=== PATIENT | female | born 1950 | race Caucasian/White ===

== ENCOUNTER 2017-06-17 09:52 | Outpatient (CLI) | payer MEDICARE ==
[2017-06-17 10:51] LABS: Hemoglobin 13.6 g/dL (12.0-16.0); Mean Corpuscular HGB CONC 33.5 g/dL (32.0-36.0); Mean Corpuscular Hemoglobin 29.9 pg (27.0-31.0); Mean Corpuscular Volume 89.1 fl (81.0-99.0); Mean Platelet Volume 7.7 fL (7.4-10.4); Platelet Count 254 thou/uL (130-400); RBC Distribution Width 12.6 % (11.5-14.5); Red Blood Cell (RBC) Count 4.55 mill/uL (4.20-5.40); White Blood Cell (WBC) Count 10.2 thou/uL (4.8-10.8)
[2017-06-17 10:56] LABS: INR-International Normal Ratio 1.1; Prothrombin Time 14.2 SEC (12.0-14.7)
[2017-06-17 11:19] LABS: ALT (SGPT) 19 U/L (8-55); AST (SGOT) 14 U/L (5-34); Albumin 4.2 g/dL (3.4-4.8); Alkaline Phosphatase 110 U/L (40-150); Anion Gap 10 mmol/L (10-20); BUN (Urea Nitrogen) 14 mg/dL (9.8-20.1); Bilirubin, Total 1.7 mg/dL (0.2-1.2); Calc. Creatinine Clearance 0 mL/min (70-130); Calcium 9.7 mg/dL (7.8-10.44); Carbon Dioxide 27 mmol/L (23-31); Cardiac Risk 3.3 (Less than 4.5); Chloride 105 mmol/L (98-107); Cholesterol 136 mg/dl (< 200 Desired); Estimated GFR-MDRD 64; Globulin 3.2 g/dL (2.4-3.5); Glucose 122 mg/dL (80-115); HDL Cholesterol 41 mg/dL (>60 Neg Risk); LDL Cholesterol, Calculated 76 mg/dL; Potassium 4.2 mmol/L (3.5-5.1); Protein, Total 7.4 g/dL (6.0-8.3); Sodium 138 mmol/L (136-145); Triglycerides 93 mg/dL (Less than 150)
--- NOTE | 2017-06-17 12:02 | RAD ---
CHEST 2 VIEWS: HISTORY: Chest pain. Preop. FINDINGS: No comparison. Cardiac silhouette and pulmonary vasculature are unremarkable. Mediastinum is midlin e. There is calcification of the aortic arch. Hemispherical small density projecting inferiorly to the anterior 1st costomanubrial junction is favored to represent calcification that may be a calcifie d granuloma or calcified cartilage of the chest wall. It is not well seen on the lateral view. No l obar consolidation, pneumothorax, or pleural fluid. IMPRESSION: No active cardiopulmonary abnormalities are demonstrated. POS: NORAH
== END 2017-06-17 09:53 | disposition home or self-care (01) ==
LOC: LABBT 09:52
PROVIDERS: ATTEND Internal Medicine Cardiovascular Disease
DX: Z01.818 Encounter for other preprocedural examination (principal); R94.39 Abnormal result of other cardiovascular function study
CPT/HCPCS: 71046; 80053; 80061; 85027; 85610; 85730; 93005; 93010

== ENCOUNTER 2017-06-23 09:59 | Day surgery (SDC) | payer MEDICARE ==
[2017-06-17 10:14] VITALS: BMI 34.4
[2017-06-23] MEDS ORDERED: Lidocaine 1% (PF) 30 ML VIAL ONE (11:42)
[2017-06-23] MEDS ORDERED: Nitroglycerin 100MG/250ML BOT 250 ML ONE (12:10)
[2017-06-23] MEDS ORDERED: Heparin 10,000 UNITS/1 ML VIAL ONE (12:10)
[2017-06-23] MEDS ORDERED: Verapamil 5 MG/2 ML VIAL ONE (12:10)
[2017-06-23] MEDS ORDERED: Iopamidol 370 76% 100 ML VIAL ONE (15:32)
== END 2017-06-23 15:04 | disposition home or self-care (01) ==
LOC: CCL 09:59
PROVIDERS: ATTEND Internal Medicine Cardiovascular Disease
PROC: 4A023N7 Measurement of Cardiac Sampling and Pressure, Left Heart, Percutaneous Approach (ICD-10-PCS; principal; 2017-06-23)
PROC: B2151ZZ Fluoroscopy of Left Heart using Low Osmolar Contrast (ICD-10-PCS; 2017-06-23)
DX: I25.10 Atherosclerotic heart disease of native coronary artery without angina pectoris (principal); I10 Essential (primary) hypertension; E78.5 Hyperlipidemia, unspecified; E11.9 Type 2 diabetes mellitus without complications; K50.90 Crohn's disease, unspecified, without complications; G47.30 Sleep apnea, unspecified; Z79.84 Long term (current) use of oral hypoglycemic drugs; Z79.82 Long term (current) use of aspirin; Z79.890 Hormone replacement therapy; Z79.899 Other long term (current) drug therapy
CPT/HCPCS: 93458; C1769; J1644; J2001

== ENCOUNTER 2020-01-18 15:38 | Outpatient (CLI) | payer MEDICARE ==
--- NOTE | 2020-01-18 16:20 | RAD ---
LEFT HUMERUS TWO VIEWS: 01/18/20 HISTORY: Left arm pain. FINDINGS/IMPRESSION: The left humerus is intact. POS: MZA
--- NOTE | 2020-01-18 16:21 | RAD ---
LEFT SHOULDER TWO VIEWS: 01/18/20 HISTORY: Left shoulder pain. FINDINGS/IMPRESSION: There are degenerative changes in the acromioclavicular joint. No fracture, dislocation, or bony dest ruction is seen. POS: AMRYA
--- NOTE | 2020-01-18 16:57 | RAD ---
CERVICAL SPINE AP AND LATERAL STANDARD THREE VIEW: 01/18/20 HISTORY: Pain. COMPARISON: None. FINDINGS: Advanced degenerative disc space narrowing at C5-6 and C6-7 with bridging anterior osteophytes. There is minimal 1 to 2 mm C3-4 anterolisthesis, degenerative in nature. There is ossification of the nuchal ligament. The visualized ribs are intact. Moderate thoracic calci fications. IMPRESSION: Moderate-high grade spondylosis lower cervical spine. MRI or CT myelogram may be beneficial if clinic ally warranted. POS: OFF
== END 2020-01-18 15:39 | disposition home or self-care (01) ==
LOC: BICRAD 15:38
PROVIDERS: ATTEND Internal Medicine
DX: M25.512 Pain in left shoulder (principal); M54.2 Cervicalgia; M79.622 Pain in left upper arm; M47.812 Spondylosis without myelopathy or radiculopathy, cervical region
CPT/HCPCS: 72040

== ENCOUNTER 2020-02-23 06:46 | Outpatient (CLI) | payer MEDICARE ==
[2020-02-23 19:02] LABS: SARS-CoV-2 MS2 Positive; SARS-CoV-2 N Gene Negative; SARS-CoV-2 S Gene Negative; SARS-CoV-2 by NAA Not Detected (NotDetected); SARS-CoV-2 orf1ab Negative
== END 2020-02-23 06:47 | disposition home or self-care (01) ==
LOC: LABBT 06:46
PROVIDERS: ATTEND Internal Medicine Cardiovascular Disease
DX: Z01.812 Encounter for preprocedural laboratory examination (principal); Z20.828 Contact with and (suspected) exposure to other viral communicable diseases
CPT/HCPCS: 87635; U0003

== ENCOUNTER 2020-02-28 10:02 | Day surgery (SDC) | payer MEDICARE ==
[2020-02-25 10:59] VITALS: BMI 35.6
[2020-02-28] MEDS ORDERED: Lidocaine 1% PF 5 ML VIAL ONE (10:49)
[2020-02-28] MEDS ORDERED: PROPOFOL 200 MG/20 ML VIAL ONE (10:49)
--- NOTE | 2020-02-28 12:53 | OP ---
DATE OF PROCEDURE: 02/28/2020 PREPROCEDURE DIAGNOSIS: Atrial fibrillation. POSTOPERATIVE DIAGNOSIS: Sinus rhythm. PROCEDURE PERFORMED: Synchronized cardioversion at 150 joules. The patient was brought as an outpatient. She was consented for the procedure. Conscious sedation was performed with propofol. Successful cardioversion performed at 150 joules. IMPRESSION: Successful synchronized cardioversion. Job ID: [id number]
== END 2020-02-28 13:50 | disposition home or self-care (01) ==
LOC: SDC 10:02
PROVIDERS: ATTEND Internal Medicine Cardiovascular Disease
PROC: 5A2204Z Restoration of Cardiac Rhythm, Single (ICD-10-PCS; principal; 2020-02-28)
DX: I48.19 Other persistent atrial fibrillation (principal); I48.92 Unspecified atrial flutter; I25.10 Atherosclerotic heart disease of native coronary artery without angina pectoris; I10 Essential (primary) hypertension; E78.5 Hyperlipidemia, unspecified; G47.33 Obstructive sleep apnea (adult) (pediatric); E11.9 Type 2 diabetes mellitus without complications; K50.90 Crohn's disease, unspecified, without complications; Z79.01 Long term (current) use of anticoagulants; Z79.82 Long term (current) use of aspirin; Z79.84 Long term (current) use of oral hypoglycemic drugs; Z79.899 Other long term (current) drug therapy
CPT/HCPCS: 92960; 93005; 93010; J2704

== ENCOUNTER 2020-05-26 15:02 | Observation (INO) | payer MEDICARE ==
[2020-05-26 16:02] LABS: #Basophils 0.1 thou/uL (0.0-0.2); #Eosinphils 0.4 thou/uL (0.0-0.7); #Lymphocytes 1.7 thou/uL (1.20-3.40); #Monocytes 0.7 thou/uL (0.11-0.59); #Neutrophils 6.7 thou/uL (1.40-6.50); %Basophils 0.5 % (0.0-1.0); %Eosinophils 4.6 % (0.0-10.0); %Lymphocytes 17.4 % (21.0-51.0); %Monocytes 6.8 % (0.0-10.0); %Neutrophils 70.7 % (42.0-75.0); Hemoglobin 13.7 g/dL (12.0-16.0); Mean Corpuscular HGB CONC 33.9 g/dL (32.0-36.0); Mean Corpuscular Hemoglobin 31.1 pg (27.0-31.0); Mean Corpuscular Volume 91.9 fL (78.0-98.0); Mean Platelet Volume 8.5 fL (7.4-10.4); Platelet Count 211 thou/uL (130-400); RBC Distribution Width 13.2 % (11.5-14.5); Red Blood Cell (RBC) Count 4.39 mill/uL (4.20-5.40); White Blood Cell (WBC) Count 9.5 thou/uL (4.8-10.8)
--- NOTE | 2020-05-26 16:17 | RAD ---
PORTABLE CHEST: 05/26/20 HISTORY: Heart palpitations. COMPARISON: 06/17/17 study. Heart size is borderline for portable technique. Mediastinal structures are unremarkable. The aorta i s mildly tortuous. The lungs are clear of infiltrates. There are no signs of failure. IMPRESSION: No active intrathoracic disease. POS: JOSE A
[2020-05-26] MEDS ORDERED: Nitroglycerin 2% Ointment 1 INCH/1 GM Packet ONE (16:20)
[2020-05-26 16:25] LABS: ALT (SGPT) 16 U/L (8-55); AST (SGOT) 15 U/L (5-34); Albumin 4.2 g/dL (3.4-4.8); Alkaline Phosphatase 127 U/L (40-110); Anion Gap 10 mmol/L (10-20); BUN (Urea Nitrogen) 19 mg/dL (9.8-20.1); Bilirubin, Total 1.7 mg/dL (0.2-1.2); Calc. Creatinine Clearance 0 mL/min (70-130); Calcium 9.2 mg/dL (7.8-10.44); Carbon Dioxide 28 mmol/L (23-31); Chloride 106 mmol/L (98-107); Globulin 3.7 g/dL (2.4-3.5); Glucose 106 mg/dL (80-115); Protein, Total 7.9 g/dL (5.8-8.1); Sodium 140 mmol/L (136-145)
--- NOTE | 2020-05-26 19:01 | PDOC.HHP ---
Hospitalist HPI chest pain, heart palpitations History of Present Illness: PCP: Dr. Mckeon Patient is a 69-year-old female with a past medical history significant for atrial fibrillation (on Eliquis), HTN, HLD, DM 2 and AARON that presents to the emergency department for the above complaint. The patient reports acute onset of substernal chest pain at approximately 1230 while sitting at home. She describes the pain as chest tightness and heaviness, exacerbated by nothing and relieved with Nitropaste. She reports associated heart palpitations and shortness of breath. She has a history of atrial fibrillation and this was her first thought. She used a phone application to check her heart rhythm, which told her possible atrial fibrillation. This made the patient feel anxious, which seemed to worsen her symptoms. She reports that the entire episode lasted approximately 5 minutes. She denies any lightheadedness or swelling to her lower extremities. She denies any new cough, hemoptysis, wheezing. No history of COPD/asthma. No history of DVT/PE. She denies any recent fever or illness. No known sick contacts. She denies any abdominal pain, nausea, vomiting, diarrhea. She denies any dysuria or hematuria. She received the first dose of the Covid vaccination 3 weeks ago. ED Course: VITAL SIGNS FriMay 26, 2020 15:03 KASSANDRA Lopez [place] BP: 143/83, Pulse: 89, Resp: 20, Temp: 98.3 (Oral), O2 sat: 97 on (Room Air), Time: 05/26/2020 15:03. VITAL SIGNS FriMay 26, 2020 16:00 KASSANDRA Ogden [place] BP: 112/70, Pulse: 75, Resp: 18, O2 sat: 99 on (Room Air), Time: 05/26/2020 16:00. VITAL SIGNS FriMay 26, 2020 17:00 KASSANDRA Ogden [place] BP: 122/67, Pulse: 64, Resp: 19, O2 sat: 97 on (Room Air), Time: 05/26/2020 17:00. VITAL SIGNS FriMay 26, 2020 18:00 KASSANDRA Ogden [place] BP: 128/71, Pulse: 72, Resp: 72, Pain: 0, O2 sat: 97 on (Room Air), Time: 05/26/2020 18:00. Presented stable vital signs. EKG atrial fibrillation rate controlled. Troponin negative. CXR no acute process. T bili 1.7, ALP 127, abdominal ultrasound showed gallstones and right renal cyst. Medications: Nitro-Bid transdermal 1 inch Topical Given 16:22 05/26/2020 Allergies/Adverse Reactions: Allergy/AdvReac Type Severity Reaction Status Date / Time No Known Allergies Allergy Unverified 02/25/20 11:00 Home Medications: Medication Instructions Recorded Confirmed Type Amlodipine [Norvasc] 5 mg PO DAILY 06/17/17 02/28/20 History Aspirin [Aspir-Low] 81 mg PO DAILY 06/17/17 02/28/20 History Rosuvastatin [Crestor] 5 mg PO DAILY 06/17/17 02/28/20 History metFORMIN [Glucophage] 500 mg PO QAM-WM 06/17/17 02/28/20 History Apixaban [Eliquis] 1 tab PO BID 02/25/20 02/28/20 History Dronedarone HCl [Multaq] 1 tab PO BID 02/25/20 02/28/20 History Metoprolol Succinate 25 mg PO DAILY 02/25/20 02/28/20 History Telmisartan 80 mg PO DAILY 02/25/20 02/28/20 History Past History: PMHx: Atrial fibrillation (on Eliquis), DM 2, HTN, HLD, AARON (CPAP) PSHx: None FHx: Noncontributory to this case Social: Lives at home with her family. Drinks alcohol socially. Never smoked or use illicit drugs. Independent. Hospitalist HPI ROS All other systems reviewed; all pertinent +/- noted in HPI/Subj Hospitalist Exam General Appearance: NAD, awake alert. negative: ill appearing Eye: anicteric sclera ENT: normocephalic atraumatic, moist mucosa Neck: supple, no carotid bruit Heart: no murmur, no gallops, no rubs, normal peripheral pulses, irregular Respiratory: CTAB, no wheezes, no rales, no ronchi, no tachypnea Gastrointestinal: soft, non-tender, non-distended, normal bowel sounds, no rigidity Gastrointestinal - other findings: Negative Gutierrez sign, negative Rovsing sign, no rebound tenderness Extremities: no cyanosis, no edema Skin: no rashes Neurological: no focal deficits Musculoskeletal: normal tone, normal strength Psychiatric: normal affect, A&O x 3 Hospitalist Results Result Diagrams: 05/26/20 15:39 05/26/20 15:39 Lab results: Laboratory Last Values WBC 9.5 thou/uL (4.8-10.8) 05/26/20 15:39 RBC 4.39 mill/uL (4.20-5.40) 05/26/20 15:39 Hgb 13.7 g/dL (12.0-16.0) 05/26/20 15:39 Hct 40.3 % (36.0-47.0) 05/26/20 15:39 MCV 91.9 fL (78.0-98.0) 05/26/20 15:39 MCH 31.1 pg (27.0-31.0) H 05/26/20 15:39 MCHC 33.9 g/dL (32.0-36.0) 05/26/20 15:39 RDW 13.2 % (11.5-14.5) 05/26/20 15:39 Plt Count 211 thou/uL (130-400) 05/26/20 15:39 MPV 8.5 fL (7.4-10.4) 05/26/20 15:39 Neutrophils % 70.7 % (42.0-75.0) 05/26/20 15:39 Lymphocytes % 17.4 % (21.0-51.0) L 05/26/20 15:39 Monocytes % 6.8 % (0.0-10.0) 05/26/20 15:39 Eosinophils % 4.6 % (0.0-10.0) 05/26/20 15:39 Basophils % 0.5 % (0.0-1.0) 05/26/20 15:39 Neutrophils # 6.7 thou/uL (1.40-6.50) H 05/26/20 15:39 Lymphocytes # 1.7 thou/uL (1.20-3.40) 05/26/20 15:39 Monocytes # 0.7 thou/uL (0.11-0.59) H 05/26/20 15:39 Eosinophils # 0.4 thou/uL (0.0-0.7) 05/26/20 15:39 Basophils # 0.1 thou/uL (0.0-0.2) 05/26/20 15:39 Sodium 140 mmol/L (136-145) 05/26/20 15:39 Potassium 4.0 mmol/L (3.5-5.1) 05/26/20 15:39 Chloride 106 mmol/L (98-107) 05/26/20 15:39 Carbon Dioxide 28 mmol/L (23-31) 05/26/20 15:39 Anion Gap 10 mmol/L (10-20) 05/26/20 15:39 BUN 19 mg/dL (9.8-20.1) 05/26/20 15:39 Creatinine 1.03 mg/dL (0.6-1.1) 05/26/20 15:39 Estimated GFR (MDRD) 53 05/26/20 15:39 Glucose 106 mg/dL (80-115) 05/26/20 15:39 Calcium 9.2 mg/dL (7.8-10.44) 05/26/20 15:39 Total Bilirubin 1.7 mg/dL (0.2-1.2) H 05/26/20 15:39 AST 15 U/L (5-34) 05/26/20 15:39 ALT 16 U/L (8-55) 05/26/20 15:39 Alkaline Phosphatase 127 U/L (40-110) H 05/26/20 15:39 Troponin I Less than 0.010 ng/mL (< 0.028) 05/26/20 15:39 Serum Total Protein 7.9 g/dL (5.8-8.1) 05/26/20 15:39 Albumin 4.2 g/dL (3.4-4.8) 05/26/20 15:39 Globulin 3.7 g/dL (2.4-3.5) H 05/26/20 15:39 Albumin/Globulin Ratio 1.1 g/dL (1.2-2.2) L 05/26/20 15:39 EKG Status: image reviewed by me, report reviewed by me Additional Comments: 12 lead EKG interpreted by Emergency Department Physician at time of study, 12 lead EKG shows, atrial fibrillation with controlled ventricular response, Rate (beats per minute): 73, with no ectopics, ST segments normal, T waves normal, [place] normal, Clinical impression:, dysrhythmia - atrial. Chest x-ray Status: image reviewed by me, report reviewed by me Additional Comments: IMPRESSION: No active intrathoracic disease. US - abdomen Status: pending Additional Comments: 1. Multiple cholelithiasis with normal caliber common bile duct. 2. 9 cm right renal cyst. Hospitalist H&P A/P (1) Chest pain Code(s): R07.9 - CHEST PAIN, UNSPECIFIED Status: Acute (2) Atrial fibrillation with controlled ventricular rate Code(s): I48.91 - UNSPECIFIED ATRIAL FIBRILLATION Status: Acute (3) Cholelithiasis Code(s): K80.20 - CALCULUS OF GALLBLADDER W/O CHOLECYSTITIS W/O OBSTRUCTION Status: Acute (4) Renal cyst, right Code(s): N28.1 - CYST OF KIDNEY, ACQUIRED Status: Acute (5) Hypertension Code(s): I10 - ESSENTIAL (PRIMARY) HYPERTENSION Status: Chronic (6) Hyperlipidemia Code(s): E78.5 - HYPERLIPIDEMIA, UNSPECIFIED Status: Chronic (7) DM2 (diabetes mellitus, type 2) Status: Chronic (8) Obstructive sleep apnea Code(s): G47.33 - OBSTRUCTIVE SLEEP APNEA (ADULT) (PEDIATRIC) Status: Chronic Plan: Patient with chronic A. fib, HTN, HLD, DM 2 and AARON presents to the hospital for angina and heart palpitations relieved with Nitropaste. EKG A. fib rate controlled. Initial troponin negative. CXR no acute process. #Chest pain Heart score 6. (2018) right heart cath 30% to mid LAD Recent echocardiogram by Dr. Crouch. Trend troponins, check BNP, TSH, mag level, UA. Continue Nitropaste and aspirin. Hold home dose Eliquis for now. N.p.o. at midnight. Consult cardiology. Restart home dose Toprol-XL, Multaq, Norvasc, telmisartan. #Atrial fibrillation with controlled ventricular rate Chronic. Takes Toprol XL, Multaq, Eliquis, aspirin. Hold Eliquis. Restart other home medications. #Cholelithiasis Presented T bili 1.7, ALP 127 Abdominal ultrasound multiple gallstones with normal ducts. Check hepatic panel in a.m. #Right renal cyst Incidental finding on right upper quadrant ultrasound. Family history renal cell carcinoma. Follow-up outpatient. #Hypertension Presented normotensive. Restart home dose telmisartan, Toprol, Norvasc #Hyperlipidemia Check FLP. Restart home dose Crestor. #DM2 Hold metformin for now. Start mild ISS. Accu-Cheks AC at bedtime. #Obstructive sleep apnea Compliant on home CPAP. RT to manage CPAP at night. SCDs for DVT prophylaxis. Pepcid for GI prophylaxis. CODE STATUS full code. Discussed the case with attending physician, Dr. Wen, who agrees with plan of care.
--- NOTE | 2020-05-26 19:48 | ULT ---
RIGHT UPPER QUADRANT ULTRASOUND: 05/26/20 HISTORY: Right upper quadrant pain. Real time imaging of the right upper quadrant shows multiple gallstones. Gallbladder wall does not ap pear thickened. The common duct is 4 mm. The visualized liver parenchyma shows no focal findings. It measures 16 cm in length. Right kidney shows a large 9 cm cyst. It appears to have some internal septations which appears thinn ed. Full characterization with a nonemergent CT may be helpful. Pancreas region is partially obscured . IMPRESSION: 1. Multiple cholelithiasis with a normal caliber common duct. 2. Large right renal cyst. POS: JOSE A
[2020-05-26 20:15] LABS: Troponin I 0.024 ng/mL (< 0.028)
[2020-05-26] MEDS ORDERED: Nitroglycerin 0.4 MG TAB (25 Tab Bottle) SL PRN (21:27)
[2020-05-26] MEDS ORDERED: HumaLOG 300 UNITS/3 ML VIAL SC PRN ×2 (21:32)
[2020-05-26] MEDS ORDERED: Dextrose 50% Abboject 50 ML SYRINGE SLOW IVP PRN (21:32)
[2020-05-26] MEDS ORDERED: Dextrose 5% in Water 1,000 ML IV PRN (21:32)
[2020-05-26] MEDS ORDERED: Ondansetron ODT 4 MG TAB PO PRN (21:33)
[2020-05-26] MEDS ORDERED: Acetaminophen 325 MG TAB PO PRN (21:33)
[2020-05-26] MEDS: Nitroglycerin 2% Ointment 1 INCH/1 GM Packet TOP SCH (23:37)
[2020-05-27 04:33] VITALS: BMI 35.8
[2020-05-27] MEDS: Nitroglycerin 2% Ointment 1 INCH/1 GM Packet TOP SCH (06:36)
[2020-05-27 07:54] LABS: #Basophils 0.1 thou/uL (0.0-0.2); #Eosinphils 0.5 thou/uL (0.0-0.7); #Lymphocytes 1.7 thou/uL (1.20-3.40); #Monocytes 0.6 thou/uL (0.11-0.59); #Neutrophils 6.8 thou/uL (1.40-6.50); %Basophils 0.7 % (0.0-1.0); %Eosinophils 4.7 % (0.0-10.0); %Monocytes 5.9 % (0.0-10.0); %Neutrophils 70.7 % (42.0-75.0); Hemoglobin 13.2 g/dL (12.0-16.0); Mean Corpuscular HGB CONC 33.7 g/dL (32.0-36.0); Mean Corpuscular Hemoglobin 30.9 pg (27.0-31.0); Mean Corpuscular Volume 91.7 fL (78.0-98.0); Mean Platelet Volume 8.8 fL (7.4-10.4); Platelet Count 230 thou/uL (130-400); RBC Distribution Width 13.2 % (11.5-14.5); Red Blood Cell (RBC) Count 4.28 mill/uL (4.20-5.40); White Blood Cell (WBC) Count 9.6 thou/uL (4.8-10.8)
[2020-05-27 08:10] LABS: Anion Gap 13 mmol/L (10-20); BUN (Urea Nitrogen) 20 mg/dL (9.8-20.1); Calc. Creatinine Clearance 68 mL/min (70-130); Calcium 9.2 mg/dL (7.8-10.44); Carbon Dioxide 28 mmol/L (23-31); Cardiac Risk 3.2 (Less than 4.5); Chloride 107 mmol/L (98-107); Cholesterol 136 mg/dl (< 200 Desired); Glucose 125 mg/dL (80-115); HDL Cholesterol 42 mg/dL (>60 Neg Risk); LDL Cholesterol, Calculated 78 mg/dL; Potassium 4.5 mmol/L (3.5-5.1); Sodium 143 mmol/L (136-145); Triglycerides 82 mg/dL (Less than 150)
[2020-05-27 08:12] LABS: ALT (SGPT) 13 U/L (8-55); AST (SGOT) 13 U/L (5-34); Albumin 3.8 g/dL (3.4-4.8); Alkaline Phosphatase 113 U/L (40-110); Bilirubin, Direct 0.7 mg/dL (0.1-0.3); Bilirubin, Total 1.5 mg/dL (0.2-1.2); Protein, Total 7.1 g/dL (5.8-8.1)
[2020-05-27] MEDS ORDERED: Losartan 25 MG TAB PO SCH (09:00)
[2020-05-27] MEDS ORDERED: Amlodipine 5 MG TAB PO SCH (09:00)
[2020-05-27] MEDS ORDERED: Famotidine 20 MG TAB PO SCH (09:00)
[2020-05-27] MEDS ORDERED: Aspirin 81 mg Enteric Coated Tablet PO SCH (09:00)
[2020-05-27] MEDS ORDERED: Dronedarone HCl 400 MG TAB PO SCH (09:00)
[2020-05-27] MEDS ORDERED: Rosuvastatin 5 MG TAB PO SCH (09:00)
[2020-05-27 11:50] VITALS: BP 120/59; TEMP 98.2
--- NOTE | 2020-05-27 11:54 | CON ---
DATE OF CONSULTATION: REASON FOR CONSULTATION: Chest tightness and atrial fibrillation. HISTORY OF PRESENT ILLNESS: Ms Abreu is a 69-year-old woman, who I have seen and evaluated in the past. She has a previous history of mild coronary artery disease. She also had a recent stress study performed in 2019 with no significant coronary artery disease. She recently presented with chest tightness. This corresponded with her going back into atrial fibrillation. This lasted for several hours. Once she converted, she had no current symptoms. She states she became anxious and stressed over going back in atrial fibrillation and decided to come to the in the emergency room based on the weather. PAST MEDICAL HISTORY: Paroxysmal atrial fibrillation, hypertension, hyperlipidemia, sleep apnea, Crohn disease, diabetes mellitus. HOME MEDICATIONS: Include: 1. Multaq. 2. Telmisartan. 3. Aspirin. 4. Metformin. 5. Rosuvastatin. 6. Amlodipine. 7. Eliquis. 8. Toprol PAST SURGICAL HISTORY: Angio in 2019 with 30% mid LAD lesion only. Recent cardioversion 02/28/2020. SOCIAL HISTORY: No tobacco or alcohol use. REVIEW OF SYSTEMS: A 10-point review of systems is reviewed as above, otherwise negative. PHYSICAL EXAMINATION: VITAL SIGNS: Blood pressure 103/53, pulse 57, temp 97.9. GENERAL: Patient is a pleasant female who is in no acute distress. The patient appears their stated age. NEUROLOGIC: The patient is alert and oriented x3 with no focal neurologic deficits. HEENT: Sclerae without icterus. Mouth has moist mucous membranes with normal pallor. NECK: No JVD. Carotid upstroke brisk. No bruits bilaterally. LUNGS: Clear to auscultation with unlabored respirations. BACK: No scoliosis or kyphosis. CARDIAC: Regular rate and rhythm with normal S1 and S2. No S3 or S4 noted. No significant rubs, murmurs, thrills, or gallops noted throughout the precordium. PMI is not displaced. There is no parasternal heave. ABDOMEN: Soft, nontender, nondistended. No peritoneal signs present. No hepatosplenomegaly. No abnormal striae. EXTREMITIES: 2+ femoral and 2+ dorsalis pedis pulses. No cyanosis, clubbing, or edema. SKIN: No gross abnormalities. PERTINENT LAB: CK troponin negative. BNP of 263. IMPRESSION: 1. Paroxysmal atrial fibrillation. 2. Chest tightness. RECOMMENDATIONS: Ms Abreu has converted back to sinus rhythm. Would continue Eliquis in addition to Multaq. The patient had a recent angio performed within the last year and a half with a mild coronary artery disease. Her CK troponins were negative. I discussed continuing with Multaq versus ablation as an outpatient. She would like to think about her options and follow up with us an outpatient. She has a scheduled appointment on June 12. Otherwise, I have no further recommendations. Okay for discharge from my standpoint. Job ID: [id number]
--- NOTE | 2020-05-27 12:07 | PDOC.DS.DS ---
Provider Date of Admission: 05/26/20 19:15 Date of Discharge: 05/27/20 Admitting Provider: Bert Wen MD Primary Care Physician: HUMA BOB MD Course Hospital Course: 69-year-old woman with a history of chronic atrial fibrillation on Multaq and Eliquis anticoagulation, hypertension and diabetes mellitus type 2 presented to the emergency department with a complaint of chest pain, associated with palpitations. Patient initial troponin in the ED was negative. EKG demonstrated atrial fibrillation with controlled ventricular response, no significant ischemic changes. Given her significant cardiac risk factors, ren allen was placed on observation for ACS rule out. Troponin trended negative. Patient was asymptomatic during the hospital stay. She was seen and evaluated by cardiology. Patient noted to have had a recent coronary angiogram revealed no arterial blockage. Cardiology Dr. Crouch cleared patient for discharge. No changes made in her medications. She is noted to have a renal cyst which needs to be followed as an outpatient. Patient informed she needs to follow-up with her PCP for further work-up and surveillance. Also noted she has cholelithiasis but no evidence of acute cholecystitis. Patient is clinically stable for discharge. Resuscitation Status: 05/26/20 21:33 Resuscitation Status Routine Co-Sign Provider: Resuscitation Status: FULL: Full Resuscitation Discussed with: patient Lab Results: 05/27/20 07:12 05/27/20 07:12 Abnormal Lab Results - Last 48 hrs 05/26/20 15:39: Total Bilirubin 1.7 H, Alkaline Phosphatase 127 H, Globulin 3.7 H, Albumin/Globulin Ratio 1.1 L 05/26/20 15:39: MCH 31.1 H, Lymphocytes % 17.4 L, Neutrophils # 6.7 H, Monocytes # 0.7 H 05/26/20 21:47: B-Natriuretic Peptide 263.0 H 05/27/20 07:12: Creatinine 1.18 H 05/27/20 07:12: Lymphocytes % 18.0 L, Neutrophils # 6.8 H, Monocytes # 0.6 H 05/27/20 07:12: Total Bilirubin 1.5 H, Direct Bilirubin 0.7 H, Alkaline Phosphatase 113 H Vitals: Vital Signs (12 hours) Temp Pulse Resp BP Pulse Ox 05/27/20 11:47 98.2 F 67 15 120/59 L 95 05/27/20 08:00 97.9 F 57 L 13 103/53 L 92 L 05/27/20 06:07 97.9 F 60 16 115/53 L 95 Weight Weight 215 lb 1.6 oz Physical Exam: The patient was seen and examined on the day of discharge. General Appearance: NAD, awake alert Eye: PERRL, anicteric sclera ENT: normocephalic atraumatic, no oropharyngeal lesions, moist mucosa Neck: supple, no JVD Respiratory: CTAB, no wheezes, no rales Cardiovascular: RRR, no murmur Gastrointestinal: soft, non-tender, non-distended, normal bowel sounds Extremities: no cyanosis, no edema Skin: normal turgor, no rashes Neurological: cranial nerve grossly intact, no focal deficits Musculoskeletal: normal strength PSYCH: normal affect, A&O x 3, oriented to person, oriented to place, oriented to time Problem (1) Atrial fibrillation with controlled ventricular rate Code(s): I48.91 - UNSPECIFIED ATRIAL FIBRILLATION Status: Acute (2) Chest pain Code(s): R07.9 - CHEST PAIN, UNSPECIFIED Status: Acute (3) Cholelithiasis Code(s): K80.20 - CALCULUS OF GALLBLADDER W/O CHOLECYSTITIS W/O OBSTRUCTION Status: Acute (4) Renal cyst, right Code(s): N28.1 - CYST OF KIDNEY, ACQUIRED Status: Acute (5) DM2 (diabetes mellitus, type 2) Status: Chronic (6) Hypertension Code(s): I10 - ESSENTIAL (PRIMARY) HYPERTENSION Status: Chronic Plan Home Medications: Medication Instructions Recorded Confirmed Type Amlodipine [Norvasc] 5 mg PO DAILY 06/17/17 05/27/20 History Aspirin [Aspir-Low] 81 mg PO HS 06/17/17 05/27/20 History Rosuvastatin [Crestor] 10 mg PO HS 06/17/17 05/27/20 History metFORMIN [Glucophage] 500 mg PO QAM- 06/17/17 05/27/20 History Apixaban [Eliquis] 1 tab PO BID 02/25/20 05/27/20 History Dronedarone HCl [Multaq] 1 tab PO BID 02/25/20 05/27/20 History Metoprolol Succinate 25 mg PO HS 02/25/20 05/27/20 History Telmisartan 80 mg PO DAILY 02/25/20 05/27/20 History Allergies: No Known Allergies Allergy (Verified 05/27/20 03:51) Discharge Instructions:: Follow up with your PCP regarding Renal Cyst for referral for Doctor. Activity:: Activity as Tolerated Nourishment:: Diabetic Diet Referrals: HUMA BOB MD [Primary Care Provider] - 10 Days Disposition: HOME Quality CORE MEASURES:: N/A
[2020-05-27] MEDS ORDERED: Apixaban 5 MG TAB PO SCH ×2 (21:00)
== END 2020-05-27 13:39 | disposition home or self-care (01) ==
LOC: ERS 15:02 → 3SE 19:15
PROVIDERS: ADMIT Student in an Organized Health Care Education/Training Program; ATTEND Internal Medicine
DX: I48.0 Paroxysmal atrial fibrillation (principal); R07.89 Other chest pain; K80.20 Calculus of gallbladder without cholecystitis without obstruction; N28.1 Cyst of kidney, acquired; I10 Essential (primary) hypertension; E78.5 Hyperlipidemia, unspecified; E11.9 Type 2 diabetes mellitus without complications; G47.33 Obstructive sleep apnea (adult) (pediatric); E78.00 Pure hypercholesterolemia, unspecified; I25.10 Atherosclerotic heart disease of native coronary artery without angina pectoris; K50.90 Crohn's disease, unspecified, without complications; Z79.01 Long term (current) use of anticoagulants; Z79.82 Long term (current) use of aspirin; Z79.84 Long term (current) use of oral hypoglycemic drugs; Z79.899 Other long term (current) drug therapy
CPT/HCPCS: 36415; 36416; 71045; 76705; 80048; 80053; 80061; 80076; 83735; 83880; 84443; 84484; 85025; 93005; 94760; G0378

== ENCOUNTER 2020-07-20 16:16 | Outpatient (CLI) | payer MEDICARE ==
[2020-07-20 17:56] LABS: Bilirubin Negative (Negative); Blood, Urine Negative (Negative); Clarity Clear (Clear); Glucose, Urine (Dipstick) Normal (Negative); Ketone, Urine Negative (Negative); Leukocyte Negative Leu/uL (Negative); Nitrite Negative (Negative); Protein, Urine (Dipstick) Negative (Neg-Trace); RBC/HPF 0-3 HPF (0-3); Specific Gravity, Urine 1.008 (1.002-1.036); Squamous Epithelial 0-3 HPF (0-3); Urobilinogen Normal mg/dL (Less than 2); WBC/HPF 0-3 HPF (0-3)
[2020-07-20 17:57] LABS: Bacteria/HPF Rare-Few HPF (None Seen)
[2020-07-20 17:59] LABS: Urine Culture Reflex No No
[2020-07-20 18:18] LABS: Anion Gap 15 mmol/L (10-20); BUN (Urea Nitrogen) 17 mg/dL (9.8-20.1); Calc. Creatinine Clearance 0 mL/min (70-130); Calcium 9.6 mg/dL (7.8-10.44); Carbon Dioxide 26 mmol/L (23-31); Chloride 104 mmol/L (98-107); Glucose 81 mg/dL (80-115); Potassium 3.7 mmol/L (3.5-5.1); Sodium 141 mmol/L (136-145)
== END 2020-07-20 16:17 | disposition home or self-care (01) ==
LOC: BICRAD 16:16
PROVIDERS: ATTEND Internal Medicine
DX: M79.672 Pain in left foot (principal); M79.89 Other specified soft tissue disorders
CPT/HCPCS: 36415; 80048; 81001

== ENCOUNTER 2020-12-14 11:57 | Outpatient (CLI) | payer MEDICARE ==
[2020-12-14 12:48] LABS: INR-International Normal Ratio 1.1; Prothrombin Time 11.9 sec (9.5-12.1)
[2020-12-14 12:49] LABS: Hemoglobin 14.4 g/dL (12.0-15.5); Mean Corpuscular HGB CONC 32.7 g/dL (32.0-36.0); Mean Corpuscular Hemoglobin 29.4 pg (27.0-33.0); Mean Platelet Volume 10.7 fl (7.4-10.4); Platelet Count 260 10x3/uL (150-450); RBC Distribution Width 13.7 % (11.5-14.5); Red Blood Cell (RBC) Count 4.89 10x6/uL (3.90-5.03); White Blood Cell (WBC) Count 8.2 10x3/uL (3.5-10.5)
[2020-12-14 13:06] LABS: Anion Gap 16 mmol/L (10-20); BUN (Urea Nitrogen) 16 mg/dL (9.8-20.1); Calc. Creatinine Clearance 0 mL/min (70-130); Calcium 9.9 mg/dL (7.8-10.44); Carbon Dioxide 24 mmol/L (23-31); Chloride 105 mmol/L (98-107); Glucose 183 mg/dL (83-110); Potassium 4.5 mmol/L (3.5-5.1); Sodium 140 mmol/L (136-145)
[2020-12-14 23:36] LABS: SARS-CoV-2 PCR by NAA Not Detected (NotDetected)
== END 2020-12-14 11:58 | disposition home or self-care (01) ==
LOC: LABBT 11:57
PROVIDERS: ATTEND Internal Medicine Cardiovascular Disease
DX: Z01.812 Encounter for preprocedural laboratory examination (principal); I48.0 Paroxysmal atrial fibrillation; Z20.822 Contact with and (suspected) exposure to COVID-19
CPT/HCPCS: 80048; 85027; 85610; U0003; U0005

== ENCOUNTER → 2020-12-19 | Day surgery (SDC) | payer MEDICARE ==
[2020-12-15 13:42] VITALS: BMI 36.6
[~2020-12-19] MED LIST: Dexamethasone 20 MG/5 ML VIAL ONE; Fentanyl 100 MCG/2 ML VIAL ONE; Glycopyrrolate 0.2 MG/ML 5 ML SYRINGE ONE; Heparin 10,000 UNITS/ 10 ML VIAL ONE; Heparin 25,000 units/D5W 500 ML ONE; Lidocaine 1% PF 5 ML VIAL ONE; Ondansetron PF 4 MG/2 ML Vial ONE; PROPOFOL 200 MG/20 ML VIAL ONE; Protamine Sulfate 50 MG/5 ML VIAL ONE; Rocuronium Bromide 10 MG/ML (10ML VIAL) ONE; ePHEDrine 50 MG/ML VIAL ONE
== END ==
LOC: CCL 05:53
PROVIDERS: ATTEND Internal Medicine Cardiovascular Disease
PROC: B246ZZ4 Ultrasonography of Right and Left Heart, Transesophageal (ICD-10-PCS; principal; 2020-12-19)
PROC: 02583ZZ Destruction of Conduction Mechanism, Percutaneous Approach (ICD-10-PCS; 2020-12-19)
PROC: 02K83ZZ Map Conduction Mechanism, Percutaneous Approach (ICD-10-PCS; 2020-12-19)
DX: I48.0 Paroxysmal atrial fibrillation (principal); I48.3 Typical atrial flutter; I48.4 Atypical atrial flutter; I11.9 Hypertensive heart disease without heart failure; I34.0 Nonrheumatic mitral (valve) insufficiency; E78.5 Hyperlipidemia, unspecified; G47.33 Obstructive sleep apnea (adult) (pediatric); K50.90 Crohn's disease, unspecified, without complications; E11.9 Type 2 diabetes mellitus without complications; I25.10 Atherosclerotic heart disease of native coronary artery without angina pectoris; Z79.01 Long term (current) use of anticoagulants; Z79.82 Long term (current) use of aspirin; Z79.84 Long term (current) use of oral hypoglycemic drugs; Z79.899 Other long term (current) drug therapy
CPT/HCPCS: 76942; 85347; 93005; 93312; 93613; 93655; 93656; 93657; 93662; C1730; C1731; C1732; C1759; C1894; C2630; J1100; J1644; J2405; J2704; J2720; J3010; J3490

== ENCOUNTER 2021-01-29 14:04 | Outpatient (CLI) | payer MEDICARE | END 2021-01-29 14:05 | disposition home or self-care (01) | LOC: ULT 14:04 | PROVIDERS: ATTEND Urology | DX: N28.1 Cyst of kidney, acquired (principal) | CPT/HCPCS: 76770 ==

== ENCOUNTER 2021-09-13 15:21 | Outpatient (CLI) | payer MEDICARE | END 2021-09-13 15:22 | disposition home or self-care (01) | LOC: BICRAD 15:21 | PROVIDERS: ATTEND Internal Medicine | DX: M79.622 Pain in left upper arm (principal); M79.89 Other specified soft tissue disorders ==

== ENCOUNTER 2022-04-03 11:03 | Outpatient (CLI) | payer MEDICARE ==
[2022-04-03 12:19] LABS: #Basophils 0.1 10x3/uL (0.0-0.2); #Eosinphils 0.3 10x3/uL (0.0-0.5); #Monocytes 0.5 10x3/uL (0.0-1.1); #Neutrophils 5.2 10x3/uL (1.5-8.4); %Eosinophils 4.1 % (0.0-6.0); %Monocytes 6.2 % (0.0-10.0); %Neutrophils 71.3 % (40.0-75.0); Hemoglobin 12.8 g/dL (12.0-15.5); Mean Corpuscular HGB CONC 33.3 g/dL (32.0-36.0); Mean Corpuscular Hemoglobin 30.4 pg (27.0-33.0); Mean Corpuscular Volume 91.2 fl (81.6-98.3); Mean Platelet Volume 10.8 fl (7.4-10.4); Platelet Count 280 10x3/uL (150-450); RBC Distribution Width 13.4 % (11.5-14.5); Red Blood Cell (RBC) Count 4.21 10x6/uL (3.90-5.03); White Blood Cell (WBC) Count 7.3 10x3/uL (3.5-10.5)
[2022-04-03 12:52] LABS: ALT (SGPT) 32 U/L (8-55); AST (SGOT) 20 U/L (5-34); Albumin 4.3 g/dL (3.4-4.8); Alkaline Phosphatase 113 U/L (40-110); Anion Gap 13 mmol/L (10-20); BUN (Urea Nitrogen) 18 mg/dL (9.8-20.1); Bilirubin, Direct 0.7 mg/dL (0.1-0.3); Bilirubin, Total 2.4 mg/dL (0.2-1.2); Calc. Creatinine Clearance 0 mL/min (70-130); Calcium 9.4 mg/dL (7.8-10.44); Carbon Dioxide 26 mmol/L (23-31); Chloride 104 mmol/L (98-107); Estimated GFR 44; Globulin 3.1 g/dL (2.4-3.5); Glucose 139 mg/dL (83-110); Potassium 4.3 mmol/L (3.5-5.1); Protein, Total 7.4 g/dL (5.8-8.1); Sodium 139 mmol/L (136-145)
== END 2022-04-03 11:04 | disposition home or self-care (01) ==
LOC: LABBT 11:03
PROVIDERS: ATTEND Surgery
DX: Z01.812 Encounter for preprocedural laboratory examination (principal); K80.20 Calculus of gallbladder without cholecystitis without obstruction; R79.89 Other specified abnormal findings of blood chemistry
CPT/HCPCS: 80053; 80076; 85025

== ENCOUNTER 2022-04-10 07:02 | Day surgery (SDC) | payer MEDICARE ==
[2022-04-09 11:16] VITALS: BMI 37.4
[2022-04-10] MEDS ORDERED: Bupivacaine/Epinephrine 0.25% 30 ML VIAL ONE (08:21)
[2022-04-10] MEDS ORDERED: Iopamidol 45 ML ONE (08:21)
[2022-04-10] MEDS ORDERED: Fentanyl 250 MCG/5 ML VIAL ONE (08:22)
[2022-04-10] MEDS ORDERED: cefOXitin 2 GM VIAL ONE (08:39)
[2022-04-10] MEDS ORDERED: Sodium Chloride 0.9% 100 ML ONE (08:39)
[2022-04-10] MEDS ORDERED: NEOSTIGMINE 3 MG/3 ML SYR 3 MG/3 ML SYRINGE ONE (08:53)
[2022-04-10] MEDS ORDERED: Rocuronium Bromide 10 MG/ML (10ML VIAL) ONE (08:53)
[2022-04-10] MEDS ORDERED: Glycopyrrolate 0.2 MG/ML 5 ML SYRINGE ONE (08:53)
[2022-04-10] MEDS ORDERED: Ketorolac Tromethamine 30 MG/ML VIAL ONE (08:53)
[2022-04-10] MEDS ORDERED: Ondansetron PF 4 MG/2 ML Vial ONE (08:53)
[2022-04-10] MEDS ORDERED: PROPOFOL 200 MG/20 ML VIAL ONE (08:53)
[2022-04-10] MEDS ORDERED: Lidocaine 1% PF 5 ML VIAL ONE (08:53)
[2022-04-10] MEDS ORDERED: Fentanyl 100 MCG/2 ML VIAL ONE (10:15)
[2022-04-10] MEDS ORDERED: HYDROcodone/Acetaminophen 5/325 mg Tablet ONE (11:05)
== END 2022-04-10 13:00 | disposition home or self-care (01) ==
LOC: SDC 07:02
PROVIDERS: ATTEND Surgery
PROC: 0FT44ZZ Resection of Gallbladder, Percutaneous Endoscopic Approach (ICD-10-PCS; principal; 2022-04-10)
PROC: BF101ZZ Fluoroscopy of Bile Ducts using Low Osmolar Contrast (ICD-10-PCS; 2022-04-10)
PROC: 0FB04ZX Excision of Liver, Percutaneous Endoscopic Approach, Diagnostic (ICD-10-PCS; 2022-04-10)
DX: K76.0 Fatty (change of) liver, not elsewhere classified (principal); K80.10 Calculus of gallbladder with chronic cholecystitis without obstruction; I25.10 Atherosclerotic heart disease of native coronary artery without angina pectoris; I10 Essential (primary) hypertension; E78.00 Pure hypercholesterolemia, unspecified; I48.91 Unspecified atrial fibrillation; E66.9 Obesity, unspecified; Z68.37 Body mass index [BMI] 37.0-37.9, adult; Z79.01 Long term (current) use of anticoagulants; Z79.82 Long term (current) use of aspirin; Z79.84 Long term (current) use of oral hypoglycemic drugs; Z79.899 Other long term (current) drug therapy
CPT/HCPCS: 47379; 47532; 47563; C1889; 88304; 88307; 88313; J0694; J1885; J2405; J2704; J3010; J3490; Q9967

== ENCOUNTER 2023-01-07 09:09 | Outpatient (CLI) | payer MEDICARE ==
[2023-01-07 10:47] LABS: ALT (SGPT) 18 U/L (8-55); AST (SGOT) 15 U/L (5-34); Albumin 4.4 g/dL (3.4-4.8); Alkaline Phosphatase 115 U/L (40-110); Anion Gap 14 mmol/L (10-20); BUN (Urea Nitrogen) 16 mg/dL (9.8-20.1); Bilirubin, Total 2.1 mg/dL (0.2-1.2); Calc. Creatinine Clearance 0 mL/min (70-130); Calcium 9.8 mg/dL (7.8-10.44); Carbon Dioxide 24 mmol/L (23-31); Chloride 107 mmol/L (98-107); Estimated GFR 43; Globulin 3.5 g/dL (2.4-3.5); Glucose 133 mg/dL (83-110); Potassium 4.3 mmol/L (3.5-5.1); Protein, Total 7.9 g/dL (5.8-8.1); Sodium 141 mmol/L (136-145)
[2023-01-07] MEDS ORDERED: Magnevist 469MG/ML 20 ML VIAL ONE (15:41)
== END 2023-01-07 09:10 | disposition home or self-care (01) ==
LOC: MRI 09:09
PROVIDERS: ATTEND Internal Medicine Gastroenterology
DX: R79.89 Other specified abnormal findings of blood chemistry (principal); K80.20 Calculus of gallbladder without cholecystitis without obstruction; K75.81 Nonalcoholic steatohepatitis (NASH); I48.91 Unspecified atrial fibrillation; N28.1 Cyst of kidney, acquired; Z90.49 Acquired absence of other specified parts of digestive tract
CPT/HCPCS: 36415; 74183; 80053; A9579

== ENCOUNTER 2023-02-05 12:42 | Outpatient (CLI) | payer MEDICARE | END 2023-02-05 12:43 | disposition home or self-care (01) | LOC: BICMAMMO 12:42 | PROVIDERS: ATTEND Internal Medicine | DX: Z13.820 Encounter for screening for osteoporosis (principal); Z78.0 Asymptomatic menopausal state; M85.88 Other specified disorders of bone density and structure, other site | CPT/HCPCS: 77080 ==

== ENCOUNTER 2023-02-19 16:05 | Outpatient (CLI) | payer MEDICARE | END 2023-02-19 16:06 | disposition home or self-care (01) | LOC: ULT 16:05 | PROVIDERS: ATTEND Urology | DX: N28.1 Cyst of kidney, acquired (principal); Z80.51 Family history of malignant neoplasm of kidney; Z84.1 Family history of disorders of kidney and ureter | CPT/HCPCS: 76770 ==

== ENCOUNTER 2023-10-07 15:02 | Outpatient (CLI) | payer MEDICARE | END 2023-10-07 15:03 | disposition home or self-care (01) | LOC: ULT 15:02 | PROVIDERS: ATTEND Internal Medicine | DX: M79.605 Pain in left leg (principal) ==

== ENCOUNTER 2023-10-22 08:58 | Outpatient (CLI) | payer MEDICARE ==
[2023-10-22] MEDS ORDERED: E-Z-HD 98% W/W 340GM BOT (x-ray ONLY) ONE (09:10)
== END 2023-10-22 08:59 | disposition home or self-care (01) ==
LOC: SJX 08:58
PROVIDERS: ATTEND Internal Medicine Gastroenterology
DX: R13.10 Dysphagia, unspecified (principal); K76.0 Fatty (change of) liver, not elsewhere classified; I48.91 Unspecified atrial fibrillation; K21.9 Gastro-esophageal reflux disease without esophagitis
CPT/HCPCS: 74220; 87086

== ENCOUNTER 2024-02-09 13:34 | Outpatient (CLI) | payer MEDICARE | END 2024-02-09 13:35 | disposition home or self-care (01) | LOC: ULT 13:34 | PROVIDERS: ATTEND Urology | DX: N28.1 Cyst of kidney, acquired (principal); Z80.51 Family history of malignant neoplasm of kidney; Z84.1 Family history of disorders of kidney and ureter | CPT/HCPCS: 36415; 76770; 80053; 80061; 81001; 82043; 83036; 84443; 85025; 87086 ==

== ENCOUNTER 2024-03-08 10:23 | Outpatient (CLI) | payer MEDICARE | END 2024-03-08 10:24 | disposition home or self-care (01) | LOC: BICCT 10:23 | PROVIDERS: ATTEND Urology | DX: R31.9 Hematuria, unspecified (principal); N28.1 Cyst of kidney, acquired | CPT/HCPCS: 74178 ==

== ENCOUNTER 2024-05-18 10:01 | Outpatient (CLI) | payer MEDICARE ==
[2024-05-18] MEDS ORDERED: Magnevist 469MG/ML 20 ML VIAL ONE (11:55)
== END 2024-05-18 10:02 | disposition home or self-care (01) ==
LOC: MRI 10:01
PROVIDERS: ATTEND Internal Medicine Gastroenterology
DX: R79.89 Other specified abnormal findings of blood chemistry (principal); K76.0 Fatty (change of) liver, not elsewhere classified; K86.89 Other specified diseases of pancreas
CPT/HCPCS: 36415; 74183; 76376; 82565